=== PATIENT | female | born 1995 | race Caucasian/White ===

== ENCOUNTER 2021-07-04 16:09 | Emergency (ER) | payer MEDICAID ==
[~2021-07-04] VITALS: Ht 167.6 cm; Wt 97.5 kg
[~2021-07-04 16:09] MED LIST: CITA10TA9 PO
[2021-07-04 16:15] VITALS: BP 139/89
[2021-07-04] MEDS ORDERED: cephalexin 250mg capsule PO ONE (17:35)
[2021-07-04] MEDS ORDERED: ketorolac tromethamine 15mg/ml inj. IM ONE (17:35)
[2021-07-04] MEDS ORDERED: sulfamethoxazole/trimethoprim DS (800/160mg) tablet PO ONE (17:35)
[2021-07-04] MEDS ORDERED: SULF1TAB45 PO (17:36)
[2021-07-04] MEDS ORDERED: CEPH250T PO (17:36)
== END 2021-07-04 18:22 | disposition home or self-care (01) ==
LOC: ER 16:09
DX: L03.116 Cellulitis of left lower limb (principal); L03.115 Cellulitis of right lower limb; G89.29 Other chronic pain; M54.9 Dorsalgia, unspecified; Z59.0 Homelessness; Z56.0 Unemployment, unspecified
CPT/HCPCS: 96372; 99283; J1885

== ENCOUNTER 2024-04-22 14:51 | Emergency (ER) | payer MEDICAID ==
[~2024-04-22] VITALS: Ht 167.6 cm; Wt 89.8 kg
[~2024-04-22 14:51] MED LIST changes: -CITA10TA9 PO; +CITA10TA93 PO
[2024-04-22 14:53] VITALS: BP 141/91; PULSE 100; RESP 16; TEMP 98; O2SAT 99
== END 2024-04-22 17:16 | disposition left against medical advice (07) ==
LOC: ER 14:51
DX: L23.7 Allergic contact dermatitis due to plants, except food (principal); Z53.21 Procedure and treatment not carried out due to patient leaving prior to being seen by health care provider

== ENCOUNTER 2024-12-15 08:58 | Emergency (ER) | payer MEDICAID ==
[~2024-12-15] VITALS: Ht 167.6 cm; Wt 95.0 kg
[2024-12-15] MEDS: normal saline 1000ML IV soln IVB ONE (10:47)
[2024-12-15] MEDS: dexamethasone sod phosphate 10mg/ml inj IV STA (10:47)
[2024-12-15] MEDS: dexamethasone sod phosphate 10mg/ml inj IM STA (12:25)
[2024-12-15] MEDS: proCHLORperazine 10 MG/2 ml inj IM ONE (12:25)
[2024-12-15] MEDS ORDERED: LOSA-415 PO (12:34)
[2024-12-15 12:53] VITALS: BP 152/99; PULSE 82; RESP 12; TEMP 98; O2SAT 99
== END 2024-12-15 12:55 | disposition home or self-care (01) ==
LOC: ER 08:58
DX: R51.9 Headache, unspecified (principal); G89.29 Other chronic pain; I10 Essential (primary) hypertension; Z79.899 Other long term (current) drug therapy; Z90.49 Acquired absence of other specified parts of digestive tract; Z90.89 Acquired absence of other organs
CPT/HCPCS: 70450; 96372; 99285; J0780; J1100; J7030